=== PATIENT | female | born 1970 | race Caucasian/White ===

== ENCOUNTER → 2018-05-12 15:14 | Outpatient (CLI) | payer OTHER, SELFPAY ==
--- NOTE | 2018-05-12 15:16 | DI.RAD.S_ITS ---
PROCEDURE: XR CHEST 2V INDICATIONS: Cough symptoms x6 weeks TECHNIQUE: 2 views of the chest were acquired. COMPARISON: None. FINDINGS: Surgical changes and devices: None. Lungs and pleura: No pleural effusions or pneumothorax. Lungs are clear. Mediastinum: Mediastinal contours are normal. Heart size is normal. Bones and chest wall: No suspicious bony abnormalities. Soft tissues appear unremarkable. IMPRESSION: No source for cough identified. Dictated by: Gokul Rosales RRA Interpreted: Carlie Taylor MD on 05/12/2018 at 15:43 Approved by: Carlie Taylor M.D. on 05/13/2018 at 9:45
== END ==
PROVIDERS: Visit Provider Registered Nurse
DX: R05 Cough (principal)
CPT/HCPCS: 71046

== ENCOUNTER → 2018-06-20 16:18 | Outpatient (CLI) | payer OTHER, SELFPAY ==
--- NOTE | 2018-06-20 16:21 | DI.RAD.S_ITS ---
PROCEDURE: XR HIP W PEL IF DONE RT 2V INDICATIONS: right hip pain TECHNIQUE: AP pelvis with lateral view(s) of the right hip(s). COMPARISON: None. FINDINGS: Bones: No fractures or dislocations. Pelvic ring appears intact. No suspicious bony lesions. Lower lumbar degenerative disc disease and lateral curvature of the spine. Mild bilateral hip degeneration Soft tissues: The visualized bowel gas pattern is normal. No suspicious soft tissue calcifications. Incidentally noted IUD. IMPRESSION: Mild bilateral hip degeneration. Lower lumbar degenerative disc disease. Dictated by: Jeyson Barraza M.D. on 06/20/2018 at 18:16 Approved by: Jeyson Barraza M.D. on 06/20/2018 at 18:17
== END ==
PROVIDERS: PCP Family Medicine; Visit Provider Family Medicine
DX: M25.551 Pain in right hip (principal); M16.0 Bilateral primary osteoarthritis of hip; M51.36 Other intervertebral disc degeneration, lumbar region
CPT/HCPCS: 73502

== ENCOUNTER → 2018-08-17 14:11 | Outpatient (CLI) | payer OTHER, SELFPAY ==
--- NOTE | 2018-08-17 11:37 | DI.MRI.S_ITS ---
PROCEDURE: MR HIP RT WO CON INDICATIONS: Right Hip pain TECHNIQUE: Noncontrast coronal T1 spin echo and STIR through the bony pelvis. Coronal and axial T2 fast spin echo with fat saturation, sagittal T1 spin echo, and oblique axial T2 fast spin echo with fat saturation through the hip. COMPARISON: None. FINDINGS: Image quality: Excellent. Bones and joints: Bone marrow of the pelvic ring and proximal femurs show normal signal throughout. No intraosseous lesions or fractures. No avascular necrosis of the femoral heads. The visualized lower lumbar spine appears normally aligned. Tendons and ligaments: Tendinosis and moderate grade partial-thickness tear involving the distal gluteus medius and minimus tendon at their insertion on greater trochanter of the right proximal femur is seen. No full-thickness tendon rupture. No significant gluteal muscle atrophy. The nearby proximal iliotibial band also appears intact. The iliopsoas tendon appears intact, without adjacent bursal fluid collections or evidence for impingement syndrome. The origin of the hamstring tendon is intact at the ischial tuberosity, as well as the associated sacrotuberous ligament. The straight and reflected heads of the rectus femoris muscle origin appear intact, as well as the conjoint tendon. The ligamentum teres appears intact where visualized. Labrum and cartilage: The acetabular labrum appears intact in the absence of intra-articular contrast. Cartilage surface of the femoral head appears of normal thickness. The alpha angle of the femur is within normal limits at less than 55 degrees. Soft tissues: Visualized muscles demonstrate normal bulk and internal signal. Quadratus femoris muscle demonstrates no internal edema to suggest ischiofemoral impingement. The proximal sciatic neurovascular bundle appears normal adjacent to the hamstring tendons. No free pelvic fluid. Bladder wall thickness is normal. Genitourinary structures and bowel loops appear normal where visualized. IMPRESSION: 1. Tendinosis and moderate grade partial-thickness tear involving the distal right gluteus medius and minimus near their insertions on the greater trochanter of right proximal femur extending to the musculotendinous junction. No full-thickness muscle or tendon rupture. No muscle atrophy. No other tendon or muscle signal abnormality is seen. 2. There is no marrow edema. No evidence of avascular necrosis of femoral head. No fracture or dislocation. 3. No evidence of focal labral tear. Dictated by: Gavin Rivera M.D. on 08/17/2018 at 16:58 Approved by: Gavin Rivera M.D. on 08/17/2018 at 17:15
== END ==
PROVIDERS: PCP Family Medicine; Visit Provider Family Medicine
DX: M25.551 Pain in right hip (principal); S73.191A Other sprain of right hip, initial encounter
CPT/HCPCS: 36415; 73721; 83001

== ENCOUNTER → 2018-08-17 | Outpatient (CLI) | payer OTHER, SELFPAY | PROVIDERS: PCP Family Medicine; Visit Provider Family Medicine | DX: N95.1 Menopausal and female climacteric states (principal) | CPT/HCPCS: 36415; 83001 ==

== ENCOUNTER → 2018-11-02 08:21 | Outpatient (CLI) | payer OTHER, SELFPAY ==
--- NOTE | 2018-11-02 08:22 | DI.MG.S_ITS ---
BILATERAL DIGITAL SCREENING MAMMOGRAM 3D/2D WITH CAD: 11/02/2018 CLINICAL: Baseline exam. Routine screening. No prior exams were available for comparison. The tissue of both breasts is heterogeneously dense. This may lower the sensitivity of mammography. Current study was also evaluated with a Computer Aided Detection (CAD) system. There is an asymmetry with associated calcifications in the right breast posterior depth medial region seen on the craniocaudal view only. There are calcifications in the right breast superior lateral quadrant posterior depth. There are calcifications in the left breast superior medial quadrant middle depth. There is an oval asymmetry in the left breast at posterior depth seen on the L MLO view only. IMPRESSION: INCOMPLETE: NEEDS ADDITIONAL IMAGING EVALUATION 1) The asymmetry with associated calcifications in the right breast posterior depth medial region seen on the craniocaudal view only is indeterminate. Magnification views as well as additional views with possible ultrasound are recommended. 2) The calcifications in the right breast superior lateral quadrant posterior depth are indeterminate. Magnification and additional views are recommended. 3) The calcifications in the left breast superior medial quadrant middle depth are indeterminate. Magnification and additional views are recommended. 4) The oval asymmetry in the left breast at posterior depth seen on the L MLO view only is indeterminate. Additional views with possible ultrasound are recommended. This exam was interpreted at Station ID: [id number]. NOTE: For mammograms, a report in lay terms will be sent to the patient. Approximately 15% of breast malignancies will not be visualized mammographically. In the management of a palpable breast mass, a negative mammogram must not discourage biopsy of a clinically suspicious lesion. Electronically Signed By: Sidney Mustafa M.D. ecl/:11/02/2018 13:00:45 letter sent: Additional Imaging Needed ACR BI-RADS Category 0: Incomplete 3340F
== END ==
PROVIDERS: PCP Family Medicine; Visit Provider Family Medicine
DX: Z12.31 Encounter for screening mammogram for malignant neoplasm of breast (principal)
CPT/HCPCS: 77063; 77067

== ENCOUNTER → 2018-11-17 08:18 | Outpatient (CLI) | payer OTHER, SELFPAY ==
--- NOTE | 2018-11-17 08:20 | DI.MG.S_ITS ---
BILATERAL DIGITAL DIAGNOSTIC MAMMOGRAM 3D/2D WITH ADDITIONAL VIEWS: 11/17/2018 CLINICAL: Additional evaluation requested from prior study. Comparison is made to exam dated: 11/02/2018 [facility]. The tissue of both breasts is heterogeneously dense. This may lower the sensitivity of mammography. There are a grouped fine pleomorphic calcifications in the right breast at 9 o'clock middle depth. There are a grouped punctate calcifications in the left breast at 12 o'clock middle depth. There also is a benign asymmetry in the left breast posterior depth central to the nipple seen on the mediolateral oblique view only. This is not seen in additional views. No other significant masses or calcifications are seen in either breast. IMPRESSION: SUSPICIOUS OF MALIGNANCY The grouped fine pleomorphic calcifications in the right breast at 9 o'clock middle depth are at a low suspicion for malignancy. A stereotactic biopsy is recommended. The grouped punctate calcifications in the left breast at 12 o'clock middle depth are probably benign. A follow-up mammogram in 6 months is recommended. The findings were discussed with the patient at the conclusion of the study by Dr. Rivera. This exam was interpreted at Station ID: [id number]. NOTE: For mammograms, a report in lay terms will be sent to the patient. Approximately 15% of breast malignancies will not be visualized mammographically. In the management of a palpable breast mass, a negative mammogram must not discourage biopsy of a clinically suspicious lesion. Electronically Signed By: Abhinav Babcock M.D. ddhiwot/:11/17/2018 09:56:50 letter sent: Biopsy Required ACR BI-RADS Category 4a: Suspicious abnormality - low suspicion for malignancy 3344F
== END ==
PROVIDERS: PCP Family Medicine; Visit Provider Family Medicine
DX: R92.8 Other abnormal and inconclusive findings on diagnostic imaging of breast (principal); R92.1 Mammographic calcification found on diagnostic imaging of breast; N64.89 Other specified disorders of breast
CPT/HCPCS: 77066; G0279

== ENCOUNTER → 2019-05-28 09:14 | Outpatient (CLI) | payer OTHER, SELFPAY ==
--- NOTE | 2019-05-28 09:16 | DI.MG.S_ITS ---
BILATERAL DIGITAL DIAGNOSTIC MAMMOGRAM 3D/2D SHORT-TERM FOLLOW-UP: 05/28/2019 CLINICAL: Short term follow up. Comparison is made to exams dated: 11/17/2018 mammogram and 11/02/2018 mammogram - [facility]. The tissue of both breasts is heterogeneously dense. This may lower the sensitivity of mammography. There are grouped fine pleomorphic calcifications in the right breast at 10 o'clock middle depth. These are not significantly changed. There is a biopsy clip associated with the calcifications. There are stable benign grouped punctate calcifications in the left breast at 12 o'clock middle depth. No other significant masses or calcifications are seen in either breast. IMPRESSION: PROBABLY BENIGN The grouped fine pleomorphic calcifications in the right breast at 10 o'clock middle depth were recently biopsied and found to be benign. Their morphology and number are fairly stable. These are probably benign. A follow-up right mammogram in 6 months is recommended to demonstrate continued stability. Calcifications in the left breast area stable. Findings and recommendations were conveyed to the patient at time of exam. This exam was interpreted at Station ID: [id number]. NOTE: For mammograms, a report in lay terms will be sent to the patient. Approximately 15% of breast malignancies will not be visualized mammographically. In the management of a palpable breast mass, a negative mammogram must not discourage biopsy of a clinically suspicious lesion. Electronically Signed By: Carolina wilkerson/:05/28/2019 10:22:32 letter sent: Followup Recommended ACR BI-RADS Category 3: Probably benign 3343F
== END ==
PROVIDERS: PCP Family Medicine; Visit Provider Family Medicine
DX: R92.1 Mammographic calcification found on diagnostic imaging of breast (principal)
CPT/HCPCS: 77066; G0279

== ENCOUNTER → 2020-02-04 12:38 | Outpatient (CLI) | payer OTHER, SELFPAY ==
--- NOTE | 2020-02-04 12:40 | DI.MG.S_ITS ---
UNILATERAL RIGHT DIGITAL DIAGNOSTIC MAMMOGRAM 3D/2D SHORT-TERM FOLLOW-UP: 02/04/2020 CLINICAL: Short term follow up of the right breast. Comparison is made to exams dated: 05/28/2019 mammogram - [facility], 11/29/2018 stereotactic biopsy - [facility], 11/17/2018 mammogram, and 11/02/2018 mammogram - [facility]. The tissue of right breast is heterogeneously dense. This may lower the sensitivity of mammography. Redemonstration of the grouped fine pleomorphic calcifications in the right breast at 10 o'clock middle depth. These are not significantly changed. There is a biopsy clip associated with the calcifications and pathology results were negative for malignancy. No other significant masses or calcifications are seen in the breast. IMPRESSION: PROBABLY BENIGN The grouped fine pleomorphic calcifications in the right breast are stable and probably benign. A follow-up right mammogram in 6 months is recommended to demonstrate stability. Patient will also be due for her left breast screening mammogram at that time. Findings and recommendations were conveyed to the patient during today's visit. This exam was interpreted at Station ID: [id number]. NOTE: For mammograms, a report in lay terms will be sent to the patient. Approximately 15% of breast malignancies will not be visualized mammographically. In the management of a palpable breast mass, a negative mammogram must not discourage biopsy of a clinically suspicious lesion. Electronically Signed By: Bienvenido Vincent M.D. aty/:02/04/2020 13:26:24 letter sent: Followup Recommended ACR BI-RADS Category 3: Probably benign [id number]
== END ==
PROVIDERS: PCP Family Medicine; Referring Provider Family Medicine; Visit Provider Family Medicine
DX: R92.8 Other abnormal and inconclusive findings on diagnostic imaging of breast (principal); R92.1 Mammographic calcification found on diagnostic imaging of breast
CPT/HCPCS: 77065; G0279

== ENCOUNTER → 2020-08-05 12:30 | Outpatient (CLI) | payer OTHER, SELFPAY ==
--- NOTE | 2020-08-05 12:32 | DI.MG.S_ITS ---
BILATERAL DIGITAL DIAGNOSTIC MAMMOGRAM 3D/2D: 08/05/2020 CLINICAL: Short follow up, due bilateral. Comparison is made to exams dated: 02/04/2020 mammogram, 05/28/2019 mammogram, 11/17/2018 mammogram, and 11/02/2018 mammogram - [facility]. The tissue of both breasts is heterogeneously dense. This may lower the sensitivity of mammography. There are stable benign grouped fine calcifications in the right breast at 9 o'clock middle depth. There is a biopsy clip associated with the calcifications. There are stable benign regional fine calcifications in the left breast at 12 o'clock middle depth. No other significant masses or calcifications are seen in either breast. IMPRESSION: BENIGN There is no mammographic evidence of malignancy. A 1 year screening mammogram is recommended. This exam was interpreted at Station ID: [id number]. NOTE: For mammograms, a report in lay terms will be sent to the patient. Approximately 15% of breast malignancies will not be visualized mammographically. In the management of a palpable breast mass, a negative mammogram must not discourage biopsy of a clinically suspicious lesion. Electronically Signed By: Abhinav samaniego/claudette:08/05/2020 13:14:28 letter sent: Normal Exam ACR BI-RADS Category 2: Benign Finding(s) 3342F
== END ==
PROVIDERS: PCP Family Medicine; Referring Provider Family Medicine; Visit Provider Family Medicine
DX: R92.1 Mammographic calcification found on diagnostic imaging of breast (principal)
CPT/HCPCS: 77066; G0279

== ENCOUNTER → 2021-01-31 10:22 | Outpatient (CLI) | payer OTHER, SELFPAY ==
[2021-01-31 11:49] LABS: Alanine Aminotransferase 64 IU/L (<35); Albumin 4.3 g/dL (3.5-5.0); Albumin Globulin Ratio 1.3 (1.0-2.8); Alkaline Phosphatase 80 U/L (38-126); Aspartate Aminotransferase 48 IU/L (14-36); BUN Creatinine Ratio 21.1 (6-22); Bilirubin Total 0.3 mg/dL (0.2-1.3); Blood Urea Nitrogen 15 mg/dL (7-17); Calcium 9.9 mg/dL (8.4-10.2); Carbon Dioxide 29 mmol/L (22-32); Chloride 106 mmol/L (98-107); Cholesterol 274 mg/dL (140-199); Estimated Glomerular Filt Rate > 60.0 mL/min (>60); Globulin 3.3 g/dL (1.7-4.1); Glucose 106 mg/dL (70-100); HDL Cholesterol 61 mg/dL (40-60); HEMOLYSIS < 15 (0-50); LDL Cholesterol Calculated 185 mg/dL (<100); Potassium 4.4 mmol/L (3.4-5.1); Sodium 141 mmol/L (137-145); Total Protein 7.6 g/dL (6.3-8.2); Triglycerides 138 mg/dL (35-150)
== END ==
PROVIDERS: PCP Family Medicine; Referring Provider Family Medicine; Visit Provider Family Medicine
DX: Z13.1 Encounter for screening for diabetes mellitus (principal); Z13.220 Encounter for screening for lipoid disorders
CPT/HCPCS: 36415; 80053; 80061

== ENCOUNTER → 2021-02-18 08:37 | Outpatient (CLI) | payer OTHER, SELFPAY ==
--- NOTE | 2021-02-18 08:37 | DI.MRI.S_ITS ---
PROCEDURE: MR KNEE LT WO CON INDICATIONS: severe pain/popping with ambulation TECHNIQUE: Noncontrast sagittal PD fast spin echo and T2 fast spin echo with fat saturation, sagittal 3-D FLASH with fat saturation; coronal T1 spin echo and PD fast spin echo with fat saturation, and axial PD fast spin echo with fat saturation through the knee. COMPARISON: None. FINDINGS: Image quality: Excellent. Menisci: Medial extrusion of the medial meniscus is present. There is linear oblique and amorphous high signal intensity within the medial meniscal body and posterior horn, demonstrating inferior articular surface extension, indicating complex tearing. Lateral meniscus is intact. Cruciate ligaments: The anterior and posterior cruciate ligaments appear intact. Medial structures: The medial collateral ligament appears intact. Visualized portions of the pes anserinus tendons appear normal. No abnormal bursal fluid. Lateral structures: The lateral collateral ligament demonstrates mild T2 signal elevation at the femoral origin. The long and short heads of the biceps femoris tendon appear intact. The popliteus tendon appears normal. Iliotibial band appears normal. Anterior structures: The quadriceps and patellar tendons appear intact. Mild T2 signal elevation within the quadriceps and patellar tendons at the patellar insertion sites. Patellar alignment is normal. No femoral trochlear dysplasia or ventral trochlear prominence. No edema in the infrapatellar fat pad. Bones and cartilage: No bone marrow contusions or fractures. Mild tricompartmental periarticular osteophyte formation. Mild articular cartilage loss diffusely overlies the weight-bearing aspects of the medial femoral condyle and medial tibial plateau. Articular cartilage fibrillation overlies the lateral patellar apex and lateral patellar facet. Joint space: There is a moderate knee joint effusion and a small Jang's cyst. Normal appearing synovial plicae are incidentally noted. IMPRESSION: 1. Complex tearing of the medial meniscus. 2. Knee joint effusion and Jang's cyst. 3. Tricompartmental osteoarthritis with associated articular cartilage loss. 4. Mild quadriceps and patellar tendinopathy. 5. Low-grade partial thickness lateral collateral ligament tear. Dictated by: Josiah Parikh M.D. on 02/18/2021 at 10:03 Approved by: Josiah Parikh M.D. on 02/18/2021 at 10:05
== END ==
PROVIDERS: PCP Family Medicine; Referring Provider Family Medicine; Visit Provider Family Medicine
DX: M25.562 Pain in left knee (principal); S83.232A Complex tear of medial meniscus, current injury, left knee, initial encounter; S83.422A Sprain of lateral collateral ligament of left knee, initial encounter; M25.462 Effusion, left knee; M71.22 Synovial cyst of popliteal space [Baker], left knee; M17.12 Unilateral primary osteoarthritis, left knee
CPT/HCPCS: 73721

== ENCOUNTER → 2021-03-14 07:50 | Outpatient (CLI) | payer OTHER, SELFPAY ==
[2021-03-14 10:01] LABS: Alanine Aminotransferase 51 IU/L (<35); Albumin 4.4 g/dL (3.5-5.0); Albumin Globulin Ratio 1.6 (1.0-2.8); Alkaline Phosphatase 63 U/L (38-126); Aspartate Aminotransferase 37 IU/L (14-36); BUN Creatinine Ratio 24.3 (6-22); Bilirubin Total 0.3 mg/dL (0.2-1.3); Blood Urea Nitrogen 17 mg/dL (7-17); Calcium 9.5 mg/dL (8.4-10.2); Carbon Dioxide 28 mmol/L (22-32); Chloride 105 mmol/L (98-107); Estimated Glomerular Filt Rate > 60.0 mL/min (>60); Globulin 2.8 g/dL (1.7-4.1); Glucose 91 mg/dL (70-100); HEMOLYSIS < 15 (0-50); Potassium 4.5 mmol/L (3.4-5.1); Sodium 139 mmol/L (137-145); Total Protein 7.2 g/dL (6.3-8.2)
== END ==
PROVIDERS: PCP Family Medicine; Referring Provider Family Medicine; Visit Provider Family Medicine
DX: R79.89 Other specified abnormal findings of blood chemistry (principal)
CPT/HCPCS: 36415; 80053

== ENCOUNTER → 2021-09-03 08:23 | Outpatient (CLI) | payer OTHER, SELFPAY ==
--- NOTE | 2021-09-03 08:24 | DI.MG.S_ITS ---
BILATERAL DIGITAL SCREENING MAMMOGRAM 3D/2D WITH CAD: 09/03/2021 CLINICAL: Routine screening. Comparison is made to exams dated: 08/05/2020 mammogram, 05/28/2019 mammogram, and 11/17/2018 mammogram - [facility]. The tissue of both breasts is heterogeneously dense. This may lower the sensitivity of mammography. Current study was also evaluated with a Computer Aided Detection (CAD) system. There is a biopsy clip in the right breast. No significant masses, calcifications, or other findings are seen in either breast. There has been no significant interval change. IMPRESSION: NEGATIVE There is no mammographic evidence of malignancy. A 1 year screening mammogram is recommended. This exam was interpreted at Station ID: [id number]. NOTE: For mammograms, a report in lay terms will be sent to the patient. Approximately 15% of breast malignancies will not be visualized mammographically. In the management of a palpable breast mass, a negative mammogram must not discourage biopsy of a clinically suspicious lesion. Electronically Signed By: Carolina wilkerson/claudette:09/03/2021 12:08:26 letter sent: Normal Exam ACR BI-RADS Category 1: Negative 3341F
== END ==
PROVIDERS: PCP Family Medicine; Referring Provider Family Medicine; Visit Provider Family Medicine
DX: Z12.31 Encounter for screening mammogram for malignant neoplasm of breast (principal)
CPT/HCPCS: 77063; 77067

== ENCOUNTER → 2021-09-14 09:58 | Outpatient (CLI) | payer OTHER, SELFPAY ==
[2021-09-14 12:03] LABS: COVID19 -Nasal RAPID Negative (Negative)
== END ==
PROVIDERS: PCP Family Medicine; Visit Provider Surgery
DX: Z01.812 Encounter for preprocedural laboratory examination (principal); Z20.822 Contact with and (suspected) exposure to COVID-19
CPT/HCPCS: 87635; C9803

== ENCOUNTER 2021-09-15 12:43 | Day surgery (SDC) | payer OTHER, SELFPAY ==
[2021-09-15] MEDS: LACTATED RINGERS 1,000 ML 100 ML IV (13:00)
[2021-09-15 13:03] VITALS: BP 168/93; PULSE 74; RESP 18; TEMP 36.6; O2SAT 99; BMI 24.1
--- NOTE | 2021-09-15 13:24 | PM.HP.1 ---
History of Present Illness History of Present Illness Date Patient Seen: 09/15/21 Time Patient Seen: 13:24 Chief complaint: SDC Narrative: colon cancer screening. This is her first colonoscopy, no GI symptoms, no family history for colon cancer. Patient History Surgical History H/O breast surgery Family & Social History Family History Grandmother Cancer Grandfather CVA (cerebral vascular accident) Sister Diabetes mellitus Social History: household members spouse Tobacco & Substance use: Smoking Status Former smoker alcohol intake current alcohol intake frequency a few times a week Substance Use Type does not use Meds Home Medications and Allergies Home Medications Medication Instructions Recorded Confirmed Type No Known Home Medications 09/15/21 09/15/21 History Allergies Allergy/AdvReac Type Severity Reaction Status Date / Time No Known Drug Allergies Allergy Verified 09/15/21 12:57 Review of Systems Review of Systems ROS: Yes All systems reviewed with the patient and are negative except as otherwise documented Exam Vital Signs (past 8 hours): - 09/15/21 13:03 Temperature 97.8 F Pulse Rate 74 Respiratory Rate 18 Blood Pressure 168/93 H Pulse Oximetry 99 Oxygen Delivery Method Room Air Const General: cooperative and healthy appearing Nutritional Appearance: average body habitus HENMT Head: normocephalic and atraumatic Eyes General: appearance normal, both eyes and all related structures Sclera: sclerae normal Neck Neck: trachea midline Chest Chest: normal inspection of the chest Resp Effort & Inspection: normal respiratory effort and able to speak in complete sentences Cardio Rate: regular rate Rhythm: regular rhythm GI Palpation: soft Skin General: no rashes or lesions noted Neuro General: patient alert and patient oriented x3 Psych Appearance: grossly normal Judgment: judgment good Assessment & Plan Assessment & Plan narrative: colon cancer screening using colonoscopy and moderate sedation Time Spent With Patient Time with patient: less than 30 minutes Critical Care time: I spent a total of [] minutes of critical care time on this patient's care today; this time is exclusive of procedural time.
--- NOTE | 2021-09-15 13:38 | PM.OP.ENDO ---
Operative Date/Time/Diagnoses Date of procedure: 09/15/21 Time of procedure: 13:38 Pre-op diagnosis: colon cancer screening Post-op diagnosis: same Procedure & Clinicians Study performed: colonoscopy Same procedure as scheduled: Yes Indications: colon cancer screening Surgeon: Sarahy Celis Procedure Notes SCOAP/Timeout: done Procedure in detail: Preop diagnosis: Colon cancer screening Postop diagnosis: Same Operative procedure: Colonoscopy with moderate sedation Anesthetic: Versed 6 mg fentanyl 150 mcg Surgeon: Lalita Celis MD Findings: Severe diverticulosis isolated to the sigmoid colon. No polyps, no significant hemorrhoids Procedure: Patient placed in a lateral position. Rectal exam performed showing normal tone no masses. Colonoscope inserted into the rectum and advanced to the ileocecal valve with minimal difficulty. Insufflation and extraction of the scope had the above findings including retroflex in the rectum. Impression: Severe diverticulosis of the descending colon, no polyps Plan: Repeat colonoscopy in 10 years unless otherwise indicated by change in clinical condition or family history Scope withdrawal time: 4 Sedation minutes: 15 Findings: diverticulosis Impression: No polyps, severe diverticulosis in sigmoid colon Post-procedure Recommendations: Colonscopy in 10 years Follow up: as needed Disposition: PACU
[2021-09-15] MEDS: fentaNYL 250 MCG/5 ML INJ IV (13:53)
[2021-09-15] MEDS: MIDAZOLAM 5 MG/5 ML VIAL IV (13:53)
[2021-09-15 14:02] VITALS: BP 123/87; PULSE 87; RESP 11; TEMP 36.6; O2SAT 95
[2021-09-15 14:07] VITALS: BP 126/74; PULSE 88; RESP 11; O2SAT 99
[2021-09-15 14:12] VITALS: BP 126/90; PULSE 87; RESP 12; O2SAT 99
[2021-09-15 14:19] VITALS: BP 127/83; PULSE 64; RESP 16; TEMP 36.1; O2SAT 98
== END 2021-09-15 14:22 | disposition home or self-care (01) ==
PROVIDERS: PCP Family Medicine; Referring Provider Surgery; Visit Provider Surgery
PROC: 0DJD8ZZ Inspection of Lower Intestinal Tract, Via Natural or Artificial Opening Endoscopic (ICD-10-PCS; CPT 45378; principal; 2021-09-15 13:45)
DX: Z12.11 Encounter for screening for malignant neoplasm of colon (principal); K57.30 Diverticulosis of large intestine without perforation or abscess without bleeding
CPT/HCPCS: 45378; 99152; J2250; J3010

== ENCOUNTER → 2022-09-17 10:06 | Outpatient (CLI) | payer OTHER, SELFPAY ==
--- NOTE | 2022-09-17 | DI.MG.S_ITS ---
BILATERAL DIGITAL SCREENING MAMMOGRAM 3D/2D WITH CAD: 09/17/2022 CLINICAL: Routine screening. Comparison is made to exams dated: 09/03/2021 mammogram, 08/05/2020 mammogram, and 02/04/2020 mammogram - [facility]. Both breasts are heterogeneously dense, which may obscure small masses (category c / 51-75% glandular tissue). Current study was also evaluated with a Computer Aided Detection (CAD) system. There is a biopsy clip in the right breast. No significant masses, calcifications, or other findings are seen in either breast. There has been no significant interval change. IMPRESSION: NEGATIVE There is no mammographic evidence of malignancy. A 1 year screening mammogram is recommended. Based on the Tyrer Cuzick model (a risk assessment model) the patient's lifetime risk is 9.8% and her 10 year risk is 2.5%. According to the ACR, ACS, and NCCN guidelines, an annual breast MRI exam along with mammogram is recommended if the patient's lifetime risk is 20% or greater. This exam was interpreted at Station ID: [id number]. NOTE: For mammograms, a report in lay terms will be sent to the patient. Approximately 15% of breast malignancies will not be visualized mammographically. In the management of a palpable breast mass, a negative mammogram must not discourage biopsy of a clinically suspicious lesion. Electronically Signed By: Carolina wilkerson/claudette:09/17/2022 17:27:09 letter sent: Normal Exam ACR BI-RADS Category 1: Negative 3341F
== END ==
PROVIDERS: PCP Family Medicine; Referring Provider Family Medicine; Visit Provider Family Medicine
DX: Z12.31 Encounter for screening mammogram for malignant neoplasm of breast (principal)
CPT/HCPCS: 77063; 77067

== ENCOUNTER → 2023-01-28 10:27 | Outpatient (CLI) | payer OTHER, SELFPAY ==
--- NOTE | 2023-01-28 10:28 | DI.RAD.S_ITS ---
PROCEDURE: XR CHEST 2V INDICATIONS: cough x 1 month. covid TECHNIQUE: 2 views of the chest were acquired. COMPARISON: [facility], CR, XR CHEST 2V, 05/12/2018, 15:25. FINDINGS: Surgical changes and devices: None. Lungs and pleura: Lungs are clear. No pleural effusions or pneumothorax. Mediastinum: Mediastinal contours are normal. Heart size is normal. Bones and chest wall: No suspicious bony abnormalities. Soft tissues appear unremarkable. IMPRESSION: No acute cardiopulmonary abnormality. Approved by: Jeremy Padilla M.D. on 01/28/2023 at 14:16
[2023-01-28 12:11] LABS: Alanine Aminotransferase 35 IU/L (<35); Albumin 4.4 g/dL (3.5-5.0); Albumin Globulin Ratio 1.3 (1.0-2.8); Alkaline Phosphatase 71 U/L (38-126); Aspartate Aminotransferase 28 IU/L (14-36); BUN Creatinine Ratio 20.8 (6-22); Bilirubin Total 0.4 mg/dL (0.2-1.3); Blood Urea Nitrogen 15 mg/dL (7-17); Calcium 9.3 mg/dL (8.4-10.2); Carbon Dioxide 30 mmol/L (22-32); Chloride 103 mmol/L (98-107); Cholesterol 262 mg/dL (140-199); Estimated Glomerular Filt Rate > 60 mL/min (>60); Globulin 3.5 g/dL (1.7-4.1); Glucose 98 mg/dL (70-100); HDL Cholesterol 46 mg/dL (40-60); HEMOLYSIS < 15 (0-50); LDL Cholesterol Calculated 193 mg/dL (<100); Sodium 138 mmol/L (137-145); Total Protein 7.9 g/dL (6.3-8.2); Triglycerides 117 mg/dL (35-150)
[2023-01-28 12:55] LABS: HIV 1 & 2 Ab/Ag 4th Gen Combo NEGATIVE (NEGATIVE); Hep C Virus Ab w/Reflex Quant NEGATIVE s/c (NEGATIVE)
[2023-01-29 07:03] LABS: Labcorp Hemoglobin (Hb) A1c 5.6 % (4.8-5.6)
== END ==
PROVIDERS: PCP Family Medicine; Referring Provider Family Medicine; Visit Provider Family Medicine
DX: R05.9 Cough, unspecified (principal); U07.1 COVID-19; E78.5 Hyperlipidemia, unspecified; Z00.00 Encounter for general adult medical examination without abnormal findings
CPT/HCPCS: 36415; 71046; 80053; 80061; 83036; 86803; 87389; 93005

== ENCOUNTER 2023-07-21 09:26 | Emergency (ER) | payer OTHER, SELFPAY ==
[2023-07-21] VITALS (9 sets, daily range): BP systolic 122–152; BP diastolic 78–89; PULSE 60–76; RESP 18; TEMP 36.6; O2SAT 98–100; BMI 25.0
--- NOTE | 2023-07-21 09:43 | DI.CT.S_ITS ---
PROCEDURE: CT ABDOMEN PELVIS W CON INDICATIONS: midepigastric pain/bloating x5 days TECHNIQUE: After the administration of intravenous contrast, axial sections acquired from the lung bases to the pubic symphysis. Coronal and sagittal reformats were performed. For radiation dose reduction, the following was used: automated exposure control, adjustment of mA and/or kV according to patient size. COMPARISON: None. FINDINGS: Image quality: Diagnostic. Lower Chest: No significant findings. ABDOMEN: Liver: No solid mass. Gallbladder: No radiopaque gallstones or wall thickening. Biliary ducts: No biliary dilation. Pancreas: No ductal dilation. Spleen: Size is within normal limits. Adrenal Glands: No adrenal nodules. Kidneys and Ureters: No hydronephrosis. No solid mass. No complex renal cystic lesion which requires follow up. Stomach and Bowel: Small hiatal hernia. Stomach and small bowel are grossly unremarkable. Appendix is not seen. No evidence of appendicitis. Colon is nondistended. Peritoneum: No abnormal intraperitoneal fluid. No free air. There is a 14 mm region of fat density within the right anterior abdominal peritoneum, with moderate surrounding fat stranding. Ventral Wall: No hernia. Abdominal Nodes: No retroperitoneal or mesenteric adenopathy by size criteria. Vessels: Aorta and inferior vena cava are normal in size. PELVIS: Pelvic Organs: Unremarkable. Bladder: Unremarkable. Pelvic Nodes: No enlarged lymph nodes. Miscellaneous: No inguinal hernias are seen. Bones: No aggressive osseous abnormality. IMPRESSION: 1. Small region of fat necrosis within the right anterior peritoneal cavity. 2. Appendix not seen. No evidence of appendicitis. 3. Small hiatal hernia. Dictated by: Josiah Parikh M.D. on 07/21/2023 at 10:27 Approved by: Josiah Parikh M.D. on 07/21/2023 at 10:30
--- NOTE | 2023-07-21 09:44 | ED.ABDPAIN ---
HPI - Abdominal Pain General Chief Complaint: Abdominal Pain Stated Complaint: severe abd pain abnormal bowel movement Time Seen by Provider: 07/21/23 09:30 Source: patient and family Mode of arrival: Ambulatory History of Present Illness HPI narrative: 53-year-old female with no reported past medical history presents by private vehicle from home for 5 days of midepigastric abdominal pain and 1 day of abnormal stool caliber. Pain is constant, worse with palpation, does not radiate. She is never felt pain like this before. Denies history of previous abdominal surgeries. Related Data Previous Rx's Medication Instructions Recorded Flovent HFA 110 mcg/actuation 1 inh inhalation BID #12 grams 02/03/23 aerosol inhaler (fluticasone propionate) Allergies Allergy/AdvReac Type Severity Reaction Status Date / Time No Known Drug Allergies Allergy Verified 07/21/23 09:44 Review of Systems Review of Systems Narrative: Negative except as noted above Patient History Medical History Allergies Scoliosis Fractures Chicken pox Ovarian cyst Abnormal Pap smear of cervix COVID Hyperlipidemia Surgical History Anesthesia H/O left knee surgery (~2020) H/O breast surgery Family History Grandmother Cancer Grandfather CVA (cerebral vascular accident) Sister Diabetes mellitus Social History marital status: number of children: 2 household members: spouse 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[employer]) Smoking Status: Former smoker alcohol intake: current substance use type: does not use Smoking Status: Former smoker alcohol intake frequency: 0-2 drinks per day Alcohol type: wine Substance Use Type: does not use Exam Initial Vital Signs Initial Vital Signs: Vital Signs Temperature 97.8 F 07/21/23 09:30 Pulse Rate 75 07/21/23 09:30 Respiratory Rate 18 07/21/23 09:30 Blood Pressure 152/83 H 07/21/23 09:30 Pulse Oximetry 100 07/21/23 09:30 Oxygen Delivery Method Room Air 07/21/23 09:30 Const: Awake, alert, no acute distress, nontoxic appearing Eyes: PERRL, EOMI, conjunctiva normal ENT: Atraumatic, dentition normal, mucous membranes moist Cardiac: regular rate, regular rhythm RESP: unlabored, clear bilaterally, no wheezing GI: Atraumatic, soft, midepigastric tenderness to deep palpation without rebound or guarding MSK: Atraumatic, full range of motion, pulses equal Skin: Warm, Dry, intact, no rashes Neuro: AO x3, CN II-XII grossly intact, moves all extremities Psych: affect normal, mood normal, not suicidal, not homicidal Course Orders Ordered: ED Orders 07/21/23 09:43 CT abdomen pelvis w con Stat 07/21/23 09:50 CBC Auto Diff [Complete Blood Count AUTO DIFF] Stat CMP [Comprehensive Metabolic Panel] Stat Lipase Stat Troponin & CK Cardiac Panel Stat 07/21/23 10:07 EKG-12 Lead Stat 07/21/23 11:00 UA Complete [Urinalysis and Microscopic] Stat Discontinued Medications Morphine Sulfate (Morphine 4 Mg/Ml Inj) 4 mg IV NOW ONE Stop: 07/21/23 09:44 Last Admin: 07/21/23 10:10 Dose: Not Given Documented By: AMV Ondansetron HCl (Ondansetron 4 Mg/2 Ml Inj) 4 mg IV NOW ONE Stop: 07/21/23 09:44 Last Admin: 07/21/23 10:10 Dose: 4 mg Documented By: AMSocrates Vital Signs Vital signs: Vital Signs - 8 hr 07/21/23 09:30 07/21/23 09:37 07/21/23 09:37 Temperature 97.8 F Pulse Rate 75 76 Respiratory Rate 18 Blood Pressure 152/83 H 152/83 H Pulse Oximetry 100 100 Oxygen Delivery Method Room Air 07/21/23 10:00 07/21/23 10:01 07/21/23 10:01 Temperature Pulse Rate 74 75 Respiratory Rate Blood Pressure 125/89 Pulse Oximetry 99 99 Oxygen Delivery Method 07/21/23 10:22 07/21/23 10:22 07/21/23 10:30 Temperature Pulse Rate 74 67 Respiratory Rate Blood Pressure 126/78 Pulse Oximetry 98 99 Oxygen Delivery Method 07/21/23 10:32 07/21/23 10:32 07/21/23 11:00 Temperature Pulse Rate 66 61 Respiratory Rate Blood Pressure 122/78 Pulse Oximetry 100 99 Oxygen Delivery Method 07/21/23 11:30 Temperature Pulse Rate 60 Respiratory Rate Blood Pressure Pulse Oximetry 99 Oxygen Delivery Method MDM - Abdominal Pain Differential Diagnosis Differential diagnosis: Likely abdominal pain, acute appendicitis and endometriosis Lab Data 07/21/23 09:50 07/21/23 09:50 Labs: Lab Results 07/21/23 07/21/23 Range/Units 09:50 11:00 WBC 5.5 (4.5-11.0) X10^3/uL RBC 4.46 (4.0-5.2) X10^6/uL Hgb 14.5 (12.0-16.0) g/dL Hct 42.4 (36-46) % MCV 95.0 (80-100) fL MCH 32.5 (26-34) PG MCHC 34.2 (30-36) % RDW 13.1 (11.6-14.8) % Plt Count 295 (150-400) X10^3/uL Neut % (Auto) 64.6 (50-75) % Lymph % (Auto) 23.9 L (25-40) % [place] % (Auto) 8.6 (3-14) % Eos % (Auto) 2.1 (2-4) % Baso % (Auto) 0.8 (0-2) % Neut # (Auto) 3500 (7319-0415) /uL Lymph # (Auto) 1300 (6086-7606) /uL [place] # (Auto) 500 (0-900) /uL Eos # (Auto) 100 (0-450) /uL Baso # (Auto) 0 (0-100) /uL Sodium 138 (137-145) mmol/L Potassium 3.9 (3.4-5.1) mmol/L Chloride 103 (98-107) mmol/L Carbon Dioxide 26 (22-32) mmol/L BUN 14 (7-17) mg/dL Creatinine 0.71 (0.52-1.04) mg/dL Estimated GFR > 60 (>60) mL/min BUN/Creatinine Ratio 19.7 (6-22) Glucose 110 H (70-100) mg/dL Calcium 9.6 (8.4-10.2) mg/dL Total Bilirubin 0.6 (0.2-1.3) mg/dL AST 31 (14-36) IU/L ALT 41 H (<35) IU/L Alkaline Phosphatase 76 (38-126) U/L Total Creatine Kinase 61 (30-135) U/L Troponin I < 0.012 (0.01-0.034) ng/mL Total Protein 7.9 (6.3-8.2) g/dL Albumin 4.3 (3.5-5.0) g/dL Globulin 3.6 (1.7-4.1) g/dL Albumin/Globulin Ratio 1.2 (1.0-2.8) Lipase 102 (23-300) U/L Urine Color Yellow Urine Appearance Clear Urine pH 7.0 (4.5-8.0) Ur Specific [place] <=1.005 (1.000-1.035) Urine Protein Negative (Negative) Urine Glucose (UA) Negative (Negative) g/dL Urine Ketones Negative (NEGATIVE) Urine Occult Blood Negative (Negative) Urine Nitrate Negative (Negative) Urine Bilirubin Negative (NEGATIVE) Urine Urobilinogen 0.2 (0.2) E.U./dL Ur Leukocyte Esterase Negative (NEGATIVE) Urine RBC None seen (0-5/HPF) Urine WBC None seen (0-5/HPF) Ur Squamous Epith Cells None seen (0-5/HPF) Urine Bacteria None seen (None) Ur Culture Indicated? Cult not indicated MDM Narrative Medical decision making narrative: Well-appearing patient with several days of midepigastric abdominal pain. Patient does have significant tenderness to deep palpation in the upper quadrants, however there is no rebound, guarding, other peritoneal signs. Patient declined pain medications, however we will order labs and CT imaging. Laboratory work is reviewed, unremarkable. CT imaging shows a small region of fat necrosis in the right anterior peritoneal cavity. Appendix is not seen however there is no surrounding evidence of appendicitis and with normal lab work I do not feel appendicitis is very likely at this time. Uncertain etiology of the fat necrosis, patient has no recent trauma, no injuries that she is aware of. Discussed case with Dr. Campbell of General surgery, who evaluated the patient, and stated that at this time no further workup needed at this juncture. Recommended pain management and if patient's pain persists she may follow up with the General surgery Clinic. Patient declined a prescription of pain medications stating that she would manage at home. ED return precautions discussed at bedside. Patient expressed understanding of the plan and is in agreement at this time. All questions answered at the time of discharge. Discharge Plan Departure Patient Disposition: Home Clinical Impression: Fat necrosis Instructions: DI for Abdominal Pain-Adult Activity Restrictions/Additional Instructions: Take tylenol and motrin as needed for pain. Follow up with general surgery if you continue to feel pain Prescriptions: No Action fluticasone propionate [Flovent HFA] 110 mcg/actuation HFA aerosol inhaler 1 inh inhalation BID Qty: 12 1RF Rx Instructions: please cancel previous prescription sent for generic, insurance will only cover the name brand Referrals: Tico Campbell MD [Physician] - Beto King DO [Primary Care Provider] - Stand Alone Forms: Patient Portal/API
[2023-07-21 10:10] LABS: Add Manual Diff / Slide Review NO; Basophils Absolute Auto 0 /uL (0-100); Basophils Percent Auto 0.8 % (0-2); Eosinophils Absolute Auto 100 /uL (0-450); Eosinophils Percent Auto 2.1 % (2-4); Hematocrit 42.4 % (36-46); Hemoglobin 14.5 g/dL (12.0-16.0); Lymphocytes Absolute Auto 1300 /uL (1100-4500); Lymphocytes Percent Auto 23.9 % (25-40); Mean Corpuscular HGB Conc 34.2 % (30-36); Mean Corpuscular Hemoglobin 32.5 PG (26-34); Monocytes Absolute Auto 500 /uL (0-900); Monocytes Percent Auto 8.6 % (3-14); Neutrophils Absolute Auto 3500 /uL (1500-7000); Neutrophils Percent Auto 64.6 % (50-75); Platelet Count 295 X10^3/uL (150-400); Red Blood Cell Count 4.46 X10^6/uL (4.0-5.2); Red Cell Distribution Width 13.1 % (11.6-14.8); White Blood Cell Count 5.5 X10^3/uL (4.5-11.0)
[2023-07-21] MEDS: ONDANSETRON 4 MG/2 ML INJ IV (10:10)
[2023-07-21 10:13] LABS: Creatine Kinase 61 U/L (30-135)
[2023-07-21 10:15] LABS: Alanine Aminotransferase 41 IU/L (<35); Albumin 4.3 g/dL (3.5-5.0); Albumin Globulin Ratio 1.2 (1.0-2.8); Alkaline Phosphatase 76 U/L (38-126); Aspartate Aminotransferase 31 IU/L (14-36); BUN Creatinine Ratio 19.7 (6-22); Bilirubin Total 0.6 mg/dL (0.2-1.3); Blood Urea Nitrogen 14 mg/dL (7-17); Calcium 9.6 mg/dL (8.4-10.2); Carbon Dioxide 26 mmol/L (22-32); Chloride 103 mmol/L (98-107); Estimated Glomerular Filt Rate > 60 mL/min (>60); Globulin 3.6 g/dL (1.7-4.1); Glucose 110 mg/dL (70-100); HEMOLYSIS < 15 (0-50); Lipase 102 U/L (23-300); Potassium 3.9 mmol/L (3.4-5.1); Sodium 138 mmol/L (137-145); Total Protein 7.9 g/dL (6.3-8.2)
[2023-07-21 10:26] LABS: Troponin I < 0.012 ng/mL (0.01-0.034)
[2023-07-21 11:46] LABS: Appearance Urine UA CLEAR; Bilirubin Urine UA NEGATIVE (NEGATIVE); Color Urine UA YELLOW; Glucose Urine UA NEGATIVE (Negative); Ketones Urine UA NEGATIVE (NEGATIVE); Leukocyte Esterase Urine UA NEGATIVE (NEGATIVE); Nitrite Urine UA NEGATIVE (Negative); Occult Blood Urine UA NEGATIVE (Negative); Protein Urine UA NEGATIVE (Negative); Specific Gravity Urine UA <=1.005 (1.000-1.035); Urobilinogen Urine UA 0.2 E.U./dL (0.2)
[2023-07-21 11:57] LABS: Bacteria Urine None Seen; Culture Indicated Urine Cult Not Indicated; RBC Urine None Seen (0-5/HPF); Squamous Epithelial Cell Urine None Seen (0-5/HPF); WBC Urine None Seen (0-5/HPF)
== END 2023-07-21 12:00 | disposition home or self-care (01) ==
PROVIDERS: Emergency Provider Emergency Medicine; PCP Family Medicine
DX: M79.89 Other specified soft tissue disorders (principal); R10.13 Epigastric pain; R07.9 Chest pain, unspecified
CPT/HCPCS: 36415; 74177; 80053; 81001; 82550; 83690; 84484; 85025; 93005; 93010; 96374; 99284; J2405; Q9967

== ENCOUNTER → 2024-02-24 12:47 | Outpatient (CLI) | payer OTHER, SELFPAY ==
--- NOTE | 2024-02-24 12:48 | DI.MG.S_ITS ---
BILATERAL DIGITAL SCREENING MAMMOGRAM 3D/2D WITH CAD: 02/24/2024 CLINICAL: Routine screening. Comparison is made to exams dated: 09/17/2022 mammogram, 09/03/2021 mammogram, and 08/05/2020 mammogram - [facility]. Both breasts are heterogeneously dense, which may obscure small masses (category c / 51-75% glandular tissue). Current study was also evaluated with a Computer Aided Detection (CAD) system. There are benign calcifications in the right breast. There also is a biopsy clip in the right breast. No significant masses, calcifications, or other findings are seen in either breast. There has been no significant interval change. IMPRESSION: BENIGN There is no mammographic evidence of malignancy. A 1 year screening mammogram is recommended. Based on the Tyrer Cuzick model (a risk assessment model) the patient's lifetime risk is 9.8% and her 10 year risk is 2.6%. According to the ACR, ACS, and NCCN guidelines, an annual breast MRI exam along with mammogram is recommended if the patient's lifetime risk is 20% or greater. This exam was interpreted at Station ID: [id number]. NOTE: For mammograms, a report in lay terms will be sent to the patient. Approximately 15% of breast malignancies will not be visualized mammographically. In the management of a palpable breast mass, a negative mammogram must not discourage biopsy of a clinically suspicious lesion. Electronically Signed By: Bienvenido marlow/claudette:02/24/2024 13:44:04 letter sent: Normal Exam ACR BI-RADS Category 2: Benign Finding(s) 3342F
== END ==
LOC: MAMMO 12:48
PROVIDERS: PCP Family Medicine; Referring Provider Family Medicine; Visit Provider Family Medicine
DX: Z12.31 Encounter for screening mammogram for malignant neoplasm of breast (principal); R92.333 Mammographic heterogeneous density, bilateral breasts
CPT/HCPCS: 77063; 77067

== ENCOUNTER 2025-04-22 13:15 | Emergency (ER) | payer OTHER, SELFPAY ==
[2025-04-22] VITALS (15 sets, daily range): BP systolic 113–169; BP diastolic 68–99; PULSE 67–91; RESP 10–26; TEMP 37; O2SAT 95–100; BMI 25.6
--- NOTE | 2025-04-22 13:26 | EKG_ITS ---
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
[2025-04-22 13:39] LABS: Add Manual Diff / Slide Review NO; Hematocrit 44.1 % (36-46); Hemoglobin 15.1 g/dL (12.0-16.0); Lymphocytes Absolute Auto 1300 /uL (1100-4500); Mean Corpuscular HGB Conc 34.2 % (30-36); Mean Corpuscular Hemoglobin 32.6 PG (26-34); Mean Corpuscular Volume 95.2 fL (80-100); Platelet Count 289 X10^3/uL (150-400)
[2025-04-22 13:52] LABS: Alanine Aminotransferase 48 IU/L (<35); Albumin 4.7 g/dL (3.5-5.0); Albumin Globulin Ratio 1.1 (1.0-2.8); Alkaline Phosphatase 94 U/L (38-126); Blood Urea Nitrogen 13 mg/dL (7-17); Calcium 9.4 mg/dL (8.4-10.2); Carbon Dioxide 24 mmol/L (22-32); Chloride 103 mmol/L (98-107); Estimated Glomerular Filt Rate > 60 mL/min (>60); Globulin 4.2 g/dL (1.7-4.1); Glucose 117 mg/dL (70-99); HEMOLYSIS 23 (0-50); Lipase 71 U/L (23-300); Potassium 3.8 mmol/L (3.4-5.1); Sodium 137 mmol/L (137-145); Total Protein 8.9 g/dL (6.3-8.2)
--- NOTE | 2025-04-22 16:32 | ED_ITS ---
HPI - General Adult General Chief complaint: Abdominal Pain Stated complaint: Lower ABD pain Time Seen by Provider: 04/22/25 15:18 Source: patient Mode of arrival: Ambulatory History of Present Illness HPI narrative: 54-year-old woman who presents with 48 hours of increasing low pelvic pain. It is worse when she walks or moves. It feels like there is a fullness and she describes it as severe menstrual cramping type pain. She is postmenopausal, no vaginal discharge, no diarrhea. She has taken some Tylenol but tries to avoid all ?mind-altering medications. No fevers or chills. Mild nausea but no vomiting. No chest pain or palpitations. Related Data Previous Rx's ?Medication ?Instructions ?Recorded Flovent HFA 110 mcg/actuation 1 inh inhalation BID #12 grams 02/03/23 aerosol inhaler (fluticasone propionate) Allergies Allergy/AdvReac Type Severity Reaction Status Date / Time No Known Drug Allergies Allergy Verified 02/16/24 12:00 Review of Systems Review of Systems Narrative: Pertinent positive and negative findings as per HPI Patient History Medical History Allergies Scoliosis Fractures Chicken pox Ovarian cyst Abnormal Pap smear of cervix COVID Hyperlipidemia Surgical History Anesthesia H/O left knee surgery (~2020) H/O breast surgery Family History Grandmother Cancer Grandfather CVA (cerebral vascular accident) Sister Diabetes mellitus Social History marital status: number of children: 2 household members: spouse 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 Able to give a complete and coherent history. Well-nourished well-developed HEENT: Moist mucous membranes, normal sclera with reactive pupils, Respiratory: Lungs are clear to auscultation, no wheezing no rales no rhonchi. Full and symmetrical air movement Cardiac: Regular rate and rhythm no murmurs no bruits Abdomen: Soft, significant tenderness in the lower abdomen with developing rebound but no guarding Skin: Warm and dry, no rashes Neurologic: Grossly neurologically intact with no obvious asymmetries or abnormalities Extremities: No trauma, well perfused Psych: Cooperative, appropriate insight and affect Course Orders Ordered: ED Orders 04/22/25 13:26 EKG-12 Lead Stat 04/22/25 13:30 Complete Blood Count AUTO DIFF Stat Comprehensive Metabolic Panel Stat Lipase Stat Ondansetron HCl (Ondansetron 4 Mg/2 Ml Inj) 4 mg IV NOW PRN PRN Reason: Nausea And Vomiting Ondansetron HCl (Ondansetron 4 Mg Odt) 4 mg PO NOW PRN PRN Reason: Nausea And Vomiting Vital Signs Vital signs: Vital Signs - 8 hr 04/22/25 13:21 04/22/25 15:07 04/22/25 15:08 Temperature 98.6 F Pulse Rate 91 H 78 Respiratory Rate 18 25 H Blood Pressure 147/99 H 169/78 H Pulse Oximetry 99 100 Oxygen Delivery Method Room Air 04/22/25 15:08 04/22/25 15:30 04/22/25 15:30 Temperature Pulse Rate 78 69 Respiratory Rate 22 12 Blood Pressure 127/85 Pulse Oximetry 100 100 Oxygen Delivery Method 04/22/25 16:00 04/22/25 16:00 04/22/25 16:12 Temperature Pulse Rate 86 74 Respiratory Rate 26 H 10 L Blood Pressure 128/73 Pulse Oximetry 97 100 Oxygen Delivery Method 04/22/25 16:12 Temperature Pulse Rate Respiratory Rate Blood Pressure 141/92 H Pulse Oximetry Oxygen Delivery Method Medical Decision Making Lab Data 04/22/25 13:30 04/22/25 13:30 Labs: Lab Results 04/22/25 Range/Units 13:30 WBC 8.2 (4.5-11.0) X10^3/uL RBC 4.64 (4.0-5.2) X10^6/uL Hgb 15.1 (12.0-16.0) g/dL Hct 44.1 (36-46) % MCV 95.2 (80-100) fL MCH 32.6 (26-34) PG MCHC 34.2 (30-36) % RDW 13.5 (11.6-14.8) % Plt Count 289 (150-400) X10^3/uL Neut % (Auto) 75.0 (50-75) % Lymph % (Auto) 16.3 L (25-40) % [place] % (Auto) 6.0 (3-14) % Eos % (Auto) 2.2 (2-4) % Baso % (Auto) 0.5 (0-2) % Neut # (Auto) 6100 (6270-6466) /uL Lymph # (Auto) 1300 (0787-8465) /uL [place] # (Auto) 500 (0-900) /uL Eos # (Auto) 200 (0-450) /uL Baso # (Auto) 0 (0-100) /uL Sodium 137 (137-145) mmol/L Potassium 3.8 (3.4-5.1) mmol/L Chloride 103 (98-107) mmol/L Carbon Dioxide 24 (22-32) mmol/L BUN 13 (7-17) mg/dL Creatinine 0.75 (0.52-1.04) mg/dL Estimated GFR > 60 (>60) mL/min BUN/Creatinine Ratio 17.3 (6-22) Glucose 117 H (70-99) mg/dL Calcium 9.4 (8.4-10.2) mg/dL Total Bilirubin 0.7 (0.2-1.3) mg/dL AST 35 (14-36) IU/L ALT 48 H (<35) IU/L Alkaline Phosphatase 94 (38-126) U/L Total Protein 8.9 H (6.3-8.2) g/dL Albumin 4.7 (3.5-5.0) g/dL Globulin 4.2 H (1.7-4.1) g/dL Albumin/Globulin Ratio 1.1 (1.0-2.8) Lipase 71 (23-300) U/L Urine Dip Bedside Urine Glucose Negative Bedside Urine Bilirubin - Negative Bedside Urine Ketone - Negative Urine Specific [place] 1.005 Bedside Urine Occult Blood +/- Bedside Urine pH 6.0 Bedside Urine Protein - Negative Bedside Urine Urobilinogen - Negative Bedside Urine Nitrite - Negative Bedside Urine Leukocytes ++ 125 Esterase Point of care testing: Urine Dip Bedside Urine Glucose Negative Bedside Urine Bilirubin - Negative Bedside Urine Ketone - Negative Urine Specific [place] 1.005 Bedside Urine Occult Blood +/- Bedside Urine pH 6.0 Bedside Urine Protein - Negative Bedside Urine Urobilinogen - Negative Bedside Urine Nitrite - Negative Bedside Urine Leukocytes ++ 125 Esterase MDM Narrative Medical decision making narrative: CC: 48 hours of increasing lower abdominal pain Complicating co-morbidities: None Data collected from: patient Differential considered: Appendicitis, diverticulitis, colitis, 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 Pertinent findings: CBC is unremarkable Chemistries show minimal elevation to ALT. Appropriate renal function Lipase is unremarkable Independently reviewed EKG: EKG shows sinus rhythm at a rate of 67 with no acute ischemic changes Imaging studies independently reviewed: CT scan shows uncomplicated diverticulitis with no abscess and no other pelvic pathology appreciated Treatments: Patient declined any pain medications. She is given a 1st dose of Augmentin Discussion: Otherwise healthy 54-year-old woman with 48 hours of lower abdominal pain CT scan confirms uncomplicated diverticulitis without evidence sepsis, urinary tract infection or other pelvic pathology. She will be started on Augmentin, recommended MiraLax to keep stools as soft as possible but not quite to watery diarrhea to help with overall symptom control. She was fine with the Tylenol for pain control. Discussed anticipated course of resolution and reasons to return to the emergency department. There was no indication for additional imaging, hospitalization and she will be safely discharged Discharge Plan Departure Patient Disposition: Home Clinical Impression: Diverticulitis Instructions: DI for Diverticulitis Activity Restrictions/Additional Instructions: Thank you for coming in today. With the amount of pain that you had I am actually quite pleased that uncomplicated diverticulitis was the result found on your CT scan. His no evidence of something more complicated, no ovarian or uterine abnormalities and no evidence of abscess, need for hospitalization or surgical consultation. I have given you a prescription for Augmentin for 10 days, please complete the entire prescription You can use Tylenol for pain control Often keeping your stools relatively soft with use of MiraLax is helpful in pain control as well If you find that you are getting worse or develop any new symptoms, please feel free to return to the emergency department for further evaluation. Prescriptions: No Action fluticasone propionate [Flovent HFA] 110 mcg/actuation HFA aerosol inhaler 1 inh inhalation BID Qty: 12 1RF Rx Instructions: please cancel previous prescription sent for generic, insurance will only cover the name brand Referrals: Beto King DO [Primary Care Provider, Family Practice] Stand Alone Forms: Patient Portal/API
--- NOTE | 2025-04-22 18:05 | DI.CT.S_ITS ---
PROCEDURE: CT ABDOMEN PELVIS W CON INDICATIONS: Low abdominal pain with guarding TECHNIQUE: After the administration of intravenous contrast, axial sections acquired from the lung bases to the pubic symphysis. Coronal and sagittal reformats were performed. For radiation dose reduction, the following was used: automated exposure control, adjustment of mA and/or kV according to patient size. COMPARISON: [facility], CT, CT ABDOMEN PELVIS W CON, 07/21/2023, 10:21. FINDINGS: Image quality: Diagnostic. Lower Chest: Small hiatal hernia. ABDOMEN: Liver: No solid mass. Gallbladder: No radiopaque gallstones or wall thickening. Biliary ducts: No biliary dilation. Pancreas: No ductal dilation. Spleen: Size is within normal limits. Adrenal Glands: No adrenal nodules. Kidneys and Ureters: No hydronephrosis. No solid mass. No complex renal cystic lesion which requires follow up. Stomach and Bowel: Normal colonic caliber, without significant wall thickening. Diverticulitis of the sigmoid colon, with wall thickening and pericolonic fat stranding. No evidence perforation. Peritoneum: No abnormal intraperitoneal fluid. No free air. Ventral Wall: No significant ventral hernia. Abdominal Nodes: No retroperitoneal or mesenteric adenopathy by size criteria. Vessels: Aorta and inferior vena cava are normal in size. PELVIS: Pelvic Organs: Unremarkable. Bladder: No bladder wall thickening, accounting for underdistention. Pelvic Nodes: No enlarged lymph nodes. Miscellaneous: No inguinal hernias are seen. Bones: No aggressive osseous abnormality. IMPRESSION: Uncomplicated acute diverticulitis of the sigmoid colon, without perforation. Dictated by: Shiraz Jimenez M.D. on 04/22/2025 at 18:28 Approved by: Shiraz Jimenez M.D. on 04/22/2025 at 18:29
[2025-04-22] MEDS: AMOXICILLIN/CLAV 875/125 MG 1 TAB PO (20:25)
== END 2025-04-22 20:30 | disposition home or self-care (01) ==
PROVIDERS: Emergency Medicine; Emergency Provider Emergency Medicine; PCP Family Medicine
DX: K57.92 Diverticulitis of intestine, part unspecified, without perforation or abscess without bleeding (principal)
CPT/HCPCS: 36415; 74177; 80053; 81003; 83690; 85025; 93005; 99284; Q9967